=== PATIENT | male | born 1995 | race American Indian/Alaskan Native ===

== ENCOUNTER 2018-05-31 16:31 | Emergency (ER) | payer OTHER, MEDICAID ==
[2018-05-31 16:52] VITALS: BMI 21.7
[2018-05-31 16:57] VITALS: BP 121/84; PULSE 60; RESP 18; TEMP 98.2; O2SAT 97
[2018-05-31] MEDS ORDERED: Tdap Vaccine 0.5 ml Vial (10-64 yrs) IM ONE ×2 (17:08→17:13)
[2018-05-31] MEDS ORDERED: Bacitracin 500 Units/gm Oint Foilpak UD TOP STA (17:15)
[2018-05-31] MEDS ORDERED: Lidocaine 1% Inj (20ml) IJ ONE (17:15)
[2018-05-31] MEDS ORDERED: Lidocaine 1% Inj (20ml) ONE (17:23)
[2018-05-31] MEDS ORDERED: Bacitracin 500 Units/gm Oint Foilpak UD ONE (17:23)
--- NOTE | 2018-05-31 17:25 | ED PDOC ---
HPI: Wound Care - HPI Time Seen by Provider: 05/31/18 17:06 Chief Complaint (Nursing): Abnormal Skin Integrity Chief Complaint (Provider): Abnormal skin integrity History Per: Patient Exam Limitations: no limitations Onset/Duration Of Symptoms: Mins (just prior to arrival) Current Symptoms Are (Timing): Still Present Location Of Injury: Right: Hand (right 3rd digit only) Quality Of Symptoms: Painful Additional Complaint(s): 22 year old male with no past medical history presents to the ED for an evaluation of a finger laceration that occurred just prior to arrival. 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 Patient reports having mild localized pain. Patient is right hand dominant. Patient denies taking medications for pain prior to arrival. Patient is seeking wound evaluation. Otherwise: (-) loss in sensation, (-) other physical complaints. Tetanus is not up to date. PMD: None. Past Medical History Reviewed: Historical Data, Nursing Documentation, Vital Signs Vital Signs: Last Vital Signs Temp 98.2 F 05/31/18 16:52 Pulse 60 05/31/18 16:52 Resp 18 05/31/18 16:52 BP 121/84 05/31/18 16:52 Pulse Ox 97 05/31/18 16:52 ALEX Report Viewed: Yes - Medical History PMH: No Chronic Diseases - Surgical History Surgical History: No Surg Hx - Family History Family History: States: No Known Family Hx - Home Medications Home Medications: Ambulatory Orders Medication Instructions Recorded RX: Bacitracin Ointment 1 applic TOP BID #1 tube 05/31/18 [Bacitracin] RX: Ibuprofen [Motrin Tab] 600 mg PO Q6 PRN #20 tab 05/31/18 - Allergies Allergies/Adverse Reactions: Allergies Allergy/AdvReac Type Severity Reaction Status Date / Time No Known Allergies Allergy Verified 05/31/18 16:52 Review of Systems ROS Statement: Except As Marked, All Systems Reviewed And Found Negative Musculoskeletal: Positive for: Other (right 3rd finger laceration) Neurological: Negative for: Numbness Physical Exam - Reviewed Nursing Documentation Reviewed: Yes Vital Signs Reviewed: Yes - Physical Exam Comments: GENERAL APPEARANCE: Patient is awake, alert, oriented x 3, in no acute distress. Resting comfortably. SKIN: Warm, dry; (-) cyanosis. ENT: Mucus membranes moist. Airway patent, (-) stridor. CHEST AND RESPIRATORY: (-) rales, (-) rhonchi, (-) wheezes; breath sounds equal bilaterally. Respirations nonlabored. HEART AND CARDIOVASCULAR: (-) irregularity WRIST: (-) Tenderness, (-) swelling, (-) ecchymosis of right wrist (-) deformity. Digits: (+)to the ulnar aspect of right 3rd digit: 3 cm linear laceration extending from mid proximal phalanx to mid middle phalanx. (+) full ROM of digit. (-) edema, (-) ecchymosis. (-) active bleeding, (+) sensation in tact, (-) tenderness. (+) capillary refill intact. Remainder of upper extremity nontender with FROM. NEURO AND PSYCH: Mental status as above. Gait: steady. Speech: clear. (-) facial asymmetry - ECG O2 Sat by Pulse Oximetry: 97 (RA) Pulse Ox Interpretation: Normal Procedure: Wound Repair - Time Performed Time Performed: 18:10 - Time Out Time Out: Side verified, Site verified, Patient ID confirmed - Consent Obtained Consent obtained: Verbal - Performed by Performed by: Mid-level Provider (Walker COLLINS) - Indications Indication(s):: Laceration - Location Finger:: Right, Middle Shape:: Linear Dimensions Length cm: 3 Depth:: Epidermis - Anesthetic Technique Anesthetic Technique: Local Local/Regional Anesthetic:: Lidocaine 1% - Debris Debris:: None - Irrigated Irrigated with ml of normal saline: 200 - Complexity Complexity:: Simple (one layer) - Wound repair method Sutures:: # (6), Size (5-0), Type (prolene) - Complications Complications: None - Patient tolerated procedure Patient Tolerated Procedure:: Well (Educated on wound care. Suture removal advised in 7-10 days.) Medical Decision Making Medical Decision Makin:05 Clinical impression: 22 year old male with a finger laceration. Initial plan: * adacel 10-64 yrs 0.5 ml IM once * Wound irrigated/soaked in normal saline/betadine solution prior to wound closure * lidocaine 1% 20 ml 5 ml IJ once * reevaluation 1814 Wound repair performed by Walker COLLINS. See procedure note below. Educated on wound care. Bacitracin, Telfa, cling bandage applied. Patient placed in aluminum finger splint to limit flexion. 1830 On re-evaluation, patient reports improvement of symptoms. On exam, patient remains AAOx3, in no acute distress. Vitals stable. Lab/Diagnostic results d/w the patient in great detail. Diagnosis of finger laceration, wound check d/w the patient. Return parameters discussed. Based on history, exam and diagnostic results, plan will be for outpatient follow up in 7-10 days for suture removal. Patient instructed to follow-up with pmd / referral provided / the clinic in 1- 2 days without fail. Advised to take medication as prescribed. Return to the emergency room at any time for any new or worsening symptoms. Patient states he fully agrees with and understands discharge instructions. States that he agrees with the plan and disposition. Verbalized and repeated discharge instructions and plan. I have given the patient opportunity to ask any additional questions. --- Scribe Attestation: Documented byShandra Duncan, acting as a scribe for Shandra Mahmood Provider Scribe Attestation: All medical record entries made by the Scribe were at my direction and personally dictated by me. I have reviewed the chart and agree that the record accurately reflects my personal performance of the history, physical exam, medical decision making, and the department course for this patient. I have also personally directed, reviewed, and agree with the discharge instructions and disposition. Disposition - Clinical Impression Clinical Impression: Finger laceration, Visit for wound care - Patient ED Disposition Is Patient to be Admitted: No Counseled Patient/Family Regarding: Studies Performed, Diagnosis, Need For Followup, Rx Given - Disposition Referrals: Bhavesh Humphreys MD [Medical Doctor] - [facility] [Outside] Disposition: Routine/Home Disposition Time: 18:30 Condition: STABLE Additional Instructions: SUTURE REMOVAL IN 7-10 DAYS. The emergency medical care you received today was directed at your acute symptoms. If you were prescribed any medication, please fill it and take as directed. It may take several days for your symptoms to resolve. Return to the Emergency Department if your symptoms worsen, do not improve, or if you have any other problems. Please contact your doctor in 2 days for re-evaluation and follow up / or call one of the physicians/clinics you have been referred to that are listed on the Patient Visit Information form that is included in your discharge packet. Bring any paperwork you were given at discharge with you along with any medications you are taking to your follow up visit. Our treatment cannot replace ongoing medical care by a primary care provider (PCP) outside of the emergency department. Prescriptions: RX: Bacitracin Ointment [Bacitracin] 1 applic TOP BID #1 tube RX: Ibuprofen [Motrin Tab] 600 mg PO Q6 PRN #20 tab PRN Reason: Pain, Moderate (4-7) Instructions: Wound Care (DC), Laceration Repair With Stitches (DC), Common Finger Injuries (DC) Forms: [facility] (Italian), [facility] School/Work Excuse Print Language: ARABIC - POA Present On Arrival: None
== END 2018-05-31 18:52 | disposition home or self-care (01) ==
LOC: H.ER 16:31
DX: S61.202A Unspecified open wound of right middle finger without damage to nail, initial encounter (principal); W31.82XA Contact with other commercial machinery, initial encounter; Y99.0 Civilian activity done for income or pay